=== PATIENT | female | born 1990 | race Caucasian/White ===

== ENCOUNTER 2017-03-07 12:57 | Emergency (ER) | payer OTHER ==
[~2017-03-07] VITALS: Ht 154.9 cm; Wt 97.5 kg
[~2017-03-07 12:57] MED LIST: CIPROFLOXACIN500 MG PO; CLOMID 50MG TAB50 MG PO; DAILY VITE1 TA2 PO; MELADOX NATURAL3 MG PO; METFORMIN500 MG PO; NAPROSYN 500MG500 MG PO; ROBAXIN-750750 MG PO; VITD PO
--- NOTE | 2017-03-07 13:13 | [facility]gent Treatment Center Report ---
History of Present Issue Date/Time Seen by Provider 03/07/17 1354 Visit Reason Pt arrived:Walked Presenting Problem:PT STATES SHE HAS HAD SEVERE VAGINAL BLEEDING SINCE THIS MORNING Location if Accident: Onset of symptoms date/time:03/07/17 or onset unknown for: Have you (or family members/close friends) recently traveled outside the [place]? N If Yes, where/when: Have you had exposure to infectious disease within the past month? TB? Other? Specify: Patient states that she has a history of vaginal bleeding State that she is out of her Provera medication and without she has severe vaginal bleeding. States that she started her period this morning and she is bleeding heavy and wanted to come and get the medication prior to bleeding heavily ALLERGIES Coded Allergies: erythromycin base (04/26/15) morphine (04/26/15) sulfisoxazole (From PEDIAZOLE) (04/26/15) vancomycin (04/26/15) Home Medications Active Scripts Ciprofloxacin HCl 500 MG PO BID #20 TAB Prov: 04/26/15 Reported Medications Multivitamin (Daily Aiyana) 1 TAB PO DAILY [VITD] History Medical History General CAD? No Angina: No CO: No Hypertension? No Hyperlipidemia? No CHF? No DVT? No PE? No COPD? No Asthma? Yes Anemia? No GERD? No Gastric ulcers? No GI Bleed? No Hernia? No Thyroid Problems? No Hypothyroidism? No CVA? No Seizures? No Diabetes? No Renal Insuffiency? No UTI? No Stones? No BPH? No GB Disease: No Nephritic Syndrome? No Asplenia? No Hepatitis? No Sickle Cell Disease? No Arthritis? No Migraines? No Cataracts? No Glaucoma? No MRSA? No HIV? No TB? No Anxiety? No Depression? No Cancer? No Immunization HX DT/Tetanus UNKNOWN Surgical Hx Previous Surgery?Y TONSILS.ADENOIDS X 2 Social History Smoking Hx Packs/day < 1 Pack Alcohol Alcohol: No Review of Systems All Other Systems Reviewed and Negative Genitourinary abnormal vaginal bleeding. Physical Exam Vital Signs Vital Signs Date Time Temp Pulse Resp B/P Pulse O2 O2 Flow FiO2 Ox Delivery Rate 03/07 1339 98.1 93 18 138/81 100 General Appearance normal appearance, WD/WN, no apparent distress Respiratory Status Yes: trachea midline, chest symmetrical, non tender chest. No: respiratory distress. Cardiovascular normal exam, regular rate/rhythm, no peripheral edema, no gallop Neurologic alert, business transformation manager II-XII nml as tested, normal exam, no motor/sensory deficits, oriented x 3 Comments Patient normally takes Provera 10 mg when she begans her period to help prevent her from bleeding so heavily State that she is out of the medication and called to go see her OBGYN but he is out of town right now and not in the office so they told her to come here. Denies weakness at this time. State that she is starting to bleed heavy and wants to get the medication and take it prior to bleeding more heavily Medical Decision Making LABS/Meds/Orders Pt receiving controlled substance in ED? No Departure Departure Time of Disposition 1348 Disposition DC Home or Self Care(routine) Clinical Impression Primary Impression: Medication refill Condition STABLE Referrals Vidal CAMACHO,Odin Gaona MD,CARMEN Delgado (Family): 3 Days-Call Office Patient Instructions DI for Vaginal Bleeding Additional Instructions Follow up with OBGYN immediately FOllow up with family doctor Your prescription was called into [facility] Return if needed Discharge Counseling Counseled pt/family regarding diagnosis, medications/RX, home care, follow up needs Comments Provera 10mg once daily for 3 days at 1402
[2017-03-07 14:04] VITALS: BP 138/81
== END 2017-03-07 14:04 | disposition home or self-care (01) ==
LOC: UTC 12:57
DX: Z76.0 Encounter for issue of repeat prescription (principal); N93.9 Abnormal uterine and vaginal bleeding, unspecified; Z88.1 Allergy status to other antibiotic agents; Z88.2 Allergy status to sulfonamides; Z88.6 Allergy status to analgesic agent; J45.909 Unspecified asthma, uncomplicated